=== PATIENT | female | born 1965 | race American Indian/Alaskan Native ===

== ENCOUNTER 2016-05-04 09:46 | Emergency (ER) | payer OTHER ==
[2016-05-04] MEDS ORDERED: THERMAZENE 50 GRAM TP ONE (11:00)
[2016-05-04] MEDS ORDERED: BOOSTRIX IM ONE (11:00)
[2016-05-04] MEDS ORDERED: ANCEF IM ONE (11:00)
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
[2016-05-04 15:16] VITALS: BP 158/91
== END 2016-05-04 15:18 | disposition home or self-care (01) ==
LOC: ED 09:46
DX: T24.201A Burn of second degree of unspecified site of right lower limb, except ankle and foot, initial encounter (principal); T31.0 Burns involving less than 10% of body surface; X11.8XXA Contact with other hot tap-water, initial encounter; Y93.9 Activity, unspecified; Y99.9 Unspecified external cause status; Y92.89 Other specified places as the place of occurrence of the external cause
CPT/HCPCS: 16020; 90471; 90715; 96372; 99282; J0690

== ENCOUNTER 2016-06-27 06:55 | Day surgery (SDC) | payer OTHER ==
--- NOTE | 2016-06-27 08:13 | Anesthesia Consultation ---
Anesthesia Consult and Med Hx Date of service: 06/27/16 - Airway Anesthetic Teeth Evaluation: Good ROM Head & Neck: Adequate Mental/Hyoid Distance: Adequate Mallampati Class: Class II Intubation Access Assessment: Probably Good - Pulmonary Exam CTA: Yes - Cardiac Exam Cardiac Exam: RRR - Pre-Operative Health Status ASA Pre-Surgery Classification: ASA2 Proposed Anesthetic Plan: MAC - Pulmonary Hx Smoking: No - Cardiovascular System Hx Hypertension: Yes (recent, no beta blockers) - Central Nervous System Hx Neuromuscular Disorder: No - Gastrointestinal Hx Gastroesophageal Reflux Disease: No - Endocrine Hx Insulin Dependent Diabetes: No - Hematic Hx Anemia: No Hx Sickle Cell Disease: No - Other Systems Hx Alcohol Use: No Hx Substance Use: No Hx Cancer: No Hx Obesity: No
--- NOTE | 2016-06-27 08:13 | Anesthesia Day of Surgery ---
Anesthesia Day of Surgery - Day of Surgery Patient Examined: Yes Patient H&P Reviewed: Yes Patient is NPO: Yes
[2016-06-27] MEDS ORDERED: WATER FOR IRRIG STERILE ONE (08:16)
[2016-06-27] MEDS ORDERED: NACL 0.9% 1000 ML 1,000 ML IV SCH (09:00)
[2016-06-27] MEDS ORDERED: XYLOCAINE MPF 2% ONE (09:46)
[2016-06-27] MEDS ORDERED: DIPRIVAN 10 MG/ML IV ONE ×3 (10:19)
--- NOTE | 2016-06-27 10:29 | Operative Report ---
Operative Report Operative Report: Date of procedure: 06/27/2016 Procedure: Colonoscopy multiple hot biopsy polypectomies. Hemoclip application. Attending physician: Garrett Dumont MD Baggage Inspector: Garrett Dumont MD Indication: 50-year-old female who presents for colorectal cancer screening. Consent: Informed consent was obtained after advising the patient and family regarding nature of this procedure, its indications, potential benefits as well as possible complications including but not limited to bleeding perforation and adverse reaction to medication, infection as well as other cardiopulmonary complications. An informed written and verbal consent was then obtained after due opportunity was provided for questions and answers. Monitoring: Patient was monitored continuously with pulse oximetry and electrocardiographic recordings as well as blood pressure recordings. Vital signs remained stable throughout this procedure with no untoward events. Preoperative assessment: Patient was assessed immediately prior to this procedure for capacity to tolerate monitored anesthesia care and moderate sedation as well as general anesthesia. Patient's ASA classification is 2, Mallampati class is 2, Hyomental distance is 3. Instrument: [facility] video colonoscope Medications: Before given intravenously in divided doses. For details please refer to anesthesia records. Description of procedure: Patient was placed in the left lateral decubitus position after achieving sedation, a digital rectal examination was performed following which the colonoscope was introduced into the anal verge and advanced to the cecum which was identified by the cecal valve, the appendiceal orifice, as well as by the cecal strap and direct transillumination. The colonoscope was subsequently withdrawn with careful inspection of all mucosal surfaces. Patient tolerated this procedure well and was subsequently taken to the recovery room. The following findings were noted. Findings: The preparation was good. In the cecum, there was a broad base flat polyp measured approximate 1 cm was removed sequentially by hot biopsy polypectomy and the base ablated. Subsequently a Hemoclip was applied over this area. The ascending colon was normal. In the transverse colon, patient had a sessile 8 mm polyp which was removed by hot biopsy polypectomy and retrieved. The rest of the colon including the descending colon sigmoid colon and rectum were normal. On the retroflex view at anal verge, patient had prominent large internal hemorrhoids. Impression: Polyp status post hot biopsy polypectomy and ablation and Hemoclip application The transverse colon polyp status post hot biopsy polypectomy. Prominent large internal hemorrhoids. Plan: Pathology report. High-fiber diet. Patient may benefit from hemorrhoidal band ligation in the near future.
--- NOTE | 2016-06-27 10:30 | Discharge Summary ---
Short Stay Discharge Plan Activity: advance as tolerated Weight Bearing Status: Weight Bear as Tolerated Diet: regular Follow up with: PRIMARY CARE, [Primary Care Provider] - 7 Days
--- NOTE | 2016-06-27 10:38 | Post Anesthesia Evaluation ---
- Post Anesthesia Evaluation Patient Participated: Yes Airway Patent: Yes Stable Respiratory Function: Yes Nausea/Vomiting: No Temp > 96.8F: Yes Pain Manageable: Yes Adequeate Hydration: Yes Anesthesia Complications: No Block Receding Appropriately: Not Applicable Patient on Ventilator: No
[2016-06-27 10:50] VITALS: BP 150/96
[2016-06-27] MEDS ORDERED: WATER FOR IRRIG STERILE IR ONE (10:59)
== END 2016-06-27 06:56 | disposition home or self-care (01) ==
LOC: GIO 06:55
PROVIDERS: ATTEND Internal Medicine Gastroenterology
DX: Z12.11 Encounter for screening for malignant neoplasm of colon (principal); D12.3 Benign neoplasm of transverse colon; K63.5 Polyp of colon; K64.8 Other hemorrhoids; I10 Essential (primary) hypertension; Z87.39 Personal history of other diseases of the musculoskeletal system and connective tissue
CPT/HCPCS: 45384; 88305; J2704; J7030